=== PATIENT | male | born 1970 | race Caucasian/White ===

== ENCOUNTER → 2016-11-29 | Outpatient (CLI) | payer OTHER ==
[~2016-11-29] MED LIST: DESYREL100 MG; FLEXERIL10 M1; KEFLEX500 MG PO; KLONOPIN1 MG PO; LORTAB 5/500 TA1 TA1; LORTAB 5/500 TA1 TA2 PO; PHENERGAN25 MG PO
--- NOTE | ~2016-11-29 | CT55 ---
[facility] A Service of [facility] RADIOLOGY TEXT RESULTS PATIENT: JORGE ELIAS LOCATION: [facility] : 72 UNIT #: [id number] AGE: [address]: Wilfrid Landis MD SEX: M ORDER DR: [id number] [facility] [address] [place], [place] [address] [id number] O MR#: [id number] Acc #: [id number] NAME: JORGE ELIAS : 1970 SEX: M STUDY DATE/TIME: 11/29/2016 7:53 UNIT: [facility]AT ROOM: STUDY DESCRIPTION: CT Chest W Con Attending Physician: Wilfrid Landis M.D. Referring Physician: Wilfrid Landis M.D. Ordering Physician: Wilfrid Landis M.D. Primary Care Physician: Rickey Kirk M.D. MEDICAL IMAGING REPORT This report is preliminary unless electronic signature is present EXAM CT chest INDICATION Secondary polycythemia. 2-month duration. Observation for malignancy. TECHNIQUE CT of the chest utilizing 100 mL Isovue-370 IV contrast. Coronal and sagittal reconstructions were obtained. This CT examination was performed with one or more of the following radiation dose reduction techniques: automatic exposure control, adjustment of mA and/or kV according to patient size, and iterative reconstruction. COMPARISON Concurrent CT abdomen and pelvis 11/29/2016. FINDINGS No pathologically enlarged mediastinal, hilar or axillary lymph nodes. The thoracic aorta is normal in caliber. No pericardial or pleural effusion. The thoracic aorta is normal in caliber. There is moderate to severe emphysema. This consists of paraseptal and centrilobular emphysema. No focal consolidation. Central airways are patent. Please refer to a separately dictated report for details on the abdomen. No acute osseous abnormalities. IMPRESSION Severe emphysema. [facility] A Service of [facility] RADIOLOGY TEXT RESULTS PATIENT: JORGE ELIAS LOCATION: [facility] : 72 UNIT #: [id number] AGE: [address]: Wilfrid Landis MD SEX: M ORDER DR: Dictated by... Alex Mccormack M.D. THIS IS AN ELECTRONICALLY VERIFIED REPORT Alex Mccormack M.D. at 11/29/2016 3:42 PM JUAN/tamika TD: 11/29/2016 09:00 JOB #: [id number] MEDICAL IMAGING REPORT Page 1 of 1 COPY
--- NOTE | ~2016-11-29 | CT2 ---
[facility] A Service of [facility] RADIOLOGY TEXT RESULTS PATIENT: JORGE ELIAS LOCATION: [facility] : 72 UNIT #: [id number] AGE: [address]: Wilfrid Landis MD SEX: M ORDER DR: [id number] [facility] [address] [place], [place] [address] [id number] O MR#: [id number] Acc #: [id number] NAME: JORGE ELIAS : 1970 SEX: M STUDY DATE/TIME: 11/29/2016 7:53 UNIT: [facility] ROOM: STUDY DESCRIPTION: CT Abd and Pelv W Cont Attending Physician: Wilfrid Landis M.D. Referring Physician: Wilfrid Landis M.D. Ordering Physician: Wilfrid Landis M.D. Primary Care Physician: Rickey Kirk M.D. MEDICAL IMAGING REPORT This report is preliminary unless electronic signature is present EXAM CT abdomen and pelvis INDICATION Polycythemia vera. Secondary polycythemia. Observation for malignancy. TECHNIQUE CT of the abdomen and pelvis with p.o. and IV contrast. Coronal and sagittal reconstructions were obtained. This CT examination was performed with one or more of the following radiation dose reduction techniques: automatic exposure control, adjustment of mA and/or kV according to patient size, and iterative reconstruction. COMPARISON CT abdomen and pelvis dated 01/10/2011. FINDINGS The spleen is normal in size. No enlarged retroperitoneal or mesenteric lymph nodes. The remaining solid abdominal organs enhance normally. The gallbladder is not distended. The bowel is not dilated. The abdominal aorta is normal in caliber. There is a small umbilical hernia. PELVIS: The appendix is normal. No enlarged pelvic or inguinal lymph nodes. Bladder is unremarkable. There appears to have been prior right inguinal hernia repair. No acute osseous abnormalities. IMPRESSION No focal abnormalities in the abdomen or pelvis. Normal size of the spleen. [facility] A Service of [facility] RADIOLOGY TEXT RESULTS PATIENT: JORGE ELIAS LOCATION: [facility] : 72 UNIT #: [id number] AGE: [address]: Wilfrid Landis MD SEX: M ORDER DR: Dictated by... Alex Mccormack M.D. THIS IS AN ELECTRONICALLY VERIFIED REPORT Alex Mccormack M.D. at 11/29/2016 3:42 PM RPHugo/tamika TD: 11/29/2016 09:04 JOB #: [id number] MEDICAL IMAGING REPORT Page 1 of 1 COPY
== END | disposition home or self-care (01) ==
LOC: CCAT 06:43
DX: D75.1 Secondary polycythemia (principal); J43.9 Emphysema, unspecified
CPT/HCPCS: 71260; 74177; Q9967